=== PATIENT | male | born 1975 | race Two or more races ===

== ENCOUNTER → 2024-08-28 10:43 | Outpatient (REF) | payer BC, SELFPAY | LOC: RAD 10:43 | PROVIDERS: ATTENDING PHYSICIAN Physician Assistant Medical | DX: E78.2 Mixed hyperlipidemia (principal); R74.8 Abnormal levels of other serum enzymes | CPT/HCPCS: 76700 ==

== ENCOUNTER 2025-03-26 06:17 | Day surgery (SDC) | payer BC, SELFPAY | END 2025-03-26 11:44 | disposition home or self-care (01) | LOC: GI 06:17 | PROVIDERS: ATTENDING PHYSICIAN Specialist | DX: Z12.11 Encounter for screening for malignant neoplasm of colon (principal); K57.30 Diverticulosis of large intestine without perforation or abscess without bleeding; D12.5 Benign neoplasm of sigmoid colon; D12.8 Benign neoplasm of rectum; K63.5 Polyp of colon | CPT/HCPCS: 45385; 45380; 88305 ==